=== PATIENT | female | born 1965 | race African-American/Black ===

== ENCOUNTER 2016-11-23 13:03 | Emergency (ER) | payer OTHER ==
[~2016-11-23] VITALS: Ht 167.6 cm; Wt 104.3 kg
[2016-11-23 13:05] VITALS: BP 139/86
[2016-11-23] MEDS ORDERED: LOTREL 5-40 MG1 EACH PO ×2 (13:08→14:10)
[2016-11-23] MEDS ORDERED: HYDROCHLOROTHIA25 M1 PO (13:08)
[2016-11-23] MEDS ORDERED: GABAPENTIN 100100 MG PO ×2 (13:08→14:10)
[2016-11-23] MEDS ORDERED: DICLOFENAC SODI75 MG PO ×2 (13:09→14:11)
[2016-11-23] MEDS ORDERED: SYNTHROID25 MCG PO ×2 (13:09→14:10)
[2016-11-23] MEDS ORDERED: NORFLEX100 MG PO ×2 (13:09→14:11)
[2016-11-23] MEDS ORDERED: HYDROCHLOROTHIA25 M2 PO (14:10)
== END 2016-11-23 14:42 | disposition home or self-care (01) ==
LOC: ER 13:03
DX: Z76.0 Encounter for issue of repeat prescription (principal)